=== PATIENT | female | born 1975 | race African-American/Black ===

== ENCOUNTER 2018-01-25 13:47 | Inpatient (IN) | payer MEDICARE, MEDICAID ==
[~2018-01-25] VITALS: Ht 175.3 cm; Wt 105.7 kg
[2018-01-25] MEDS ORDERED: ONDANSETRON HCL 4MG/2ML VIAL IV STA (13:55)
[2018-01-25] MEDS ORDERED: SODIUM CHLORIDE 0.9% 1,000 ML IV ONE ×2 (13:55→15:38)
[2018-01-25] MEDS ORDERED: KETOROLAC 30MG/ML VIAL IV STA (13:55)
[2018-01-25] MEDS ORDERED: MORPHINE SULFATE 4 MG/ML CPJ (NOT FOR IM USE) IV STA (13:55)
[2018-01-25 14:34] LABS: CHLORIDE 106 mEq/L (98-107)
[2018-01-25 14:35] LABS: HEMATOCRIT. 38.7 % (36.0-48.0); HEMOGLOBIN. 12.9 g/dL (12.0-16.0); MEAN CORPUSCULAR HEMOGLOBIN 30.8 pg (28.0-32.0); MEAN CORPUSCULAR VOLUME 92.3 fL (81.0-99.0); MEAN PLATELET VOLUME 7.8 fl (7.4-10.4); PLATELET 375 x1000/uL (130-400); RED BLOOD CELL COUNT 4.19 mill/uL (4.2-5.4); RED CELL DISTRIBUTION WIDTH 13.7 % (11.6-14.6)
[2018-01-25 14:55] LABS: HCG SCREEN NEGATIVE
[2018-01-25 15:04] LABS: PLATELET ESTIMATE NORMAL
[2018-01-25 15:28] LABS: CREATINE KINASE 204 IU/L (26-192)
[2018-01-25 15:29] LABS: CREATINE KINASE MB FRACTION 1.3 ng/mL (0.5-3.6)
[2018-01-25] MEDS ORDERED: CEFTRIAXONE 1 G PREMIX 50 ML IV ONE (16:30)
[2018-01-25] MEDS ORDERED: CLONIDINE 0.1MG TABLET PO PRN (17:15)
[2018-01-25] MEDS ORDERED: HYDROCODONE/ACETAMINOPHEN 5/325MG TABLET PO PRN (17:15)
[2018-01-25] MEDS ORDERED: DOCUSATE SODIUM 100MG CAPSULE PO PRN (17:15)
[2018-01-25] MEDS ORDERED: MAGNESIUM/ALUMINUM HYDROXIDE/SIMETHICONE 30ML UDC PO PRN (17:15)
[2018-01-25] MEDS ORDERED: ACETAMINOPHEN 325MG TABLET PO PRN (17:15)
[2018-01-25] MEDS ORDERED: ONDANSETRON HCL 4MG/2ML VIAL IV PRN (17:15)
[2018-01-25] MEDS ORDERED: ENOXAPARIN 40MG/0.4ML SYR SUBCUT SCH (17:15)
[2018-01-25] MEDS ORDERED: KETOROLAC 30MG/ML VIAL IV PRN (17:15)
[2018-01-25] MEDS ORDERED: IPRATROPIUM/ALBUTEROL 0.5-3(2.5)MG/3ML NEB INH PRN (17:15)
[2018-01-25 20:30] VITALS: BP 118/67
[2018-01-25] MEDS ORDERED: METH2.5T PO (20:43)
[2018-01-25] MEDS ORDERED: SERT50TA12 PO (20:43)
[2018-01-25] MEDS ORDERED: TRAZ-129 PO (20:43)
[2018-01-25] MEDS ORDERED: ASPI-1159 MT (20:43)
[2018-01-25] MEDS ORDERED: FOLI-43 PO (20:43)
[2018-01-25] MEDS ORDERED: DIPH25CA83 PO (20:43)
[2018-01-25] MEDS ORDERED: HYDR-2412 PO (20:43)
[2018-01-25 20:45] LABS: CHLORIDE 110 mEq/L (98-107)
[2018-01-25 21:00] VITALS: BP 118/67
[2018-01-25] MEDS ORDERED: CEFTRIAXONE 1 G PREMIX 50 ML IV SCH (21:00)
[2018-01-25] MEDS: ENOXAPARIN 30MG/0.3ML SYR SUBCUT SCH (21:00)
[2018-01-25] MEDS: SODIUM CHLORIDE 0.9% 1,000 ML IV SCH (22:53)
[2018-01-25] MEDS ORDERED: POTASSIUM CHLORIDE 20MEQ TABLET SR PO SCH (23:45)
[2018-01-26] VITALS: BP 126/69
[2018-01-26 04:00] VITALS: BP 106/66
[2018-01-26 08:00] VITALS: BP 122/85
[2018-01-26 09:00] LABS: BASOPHILS % 0.5 % (0.0-2.0); EOSINOPHILS % 1.5 % (0.0-5.0); HEMATOCRIT. 36.6 % (36.0-48.0); HEMOGLOBIN. 12.1 g/dL (12.0-16.0); LYMPHOCYTES % 21.1 % (20.0-50.0); MEAN CORPUSCULAR HEMOGLOBIN 30.7 pg (28.0-32.0); MEAN CORPUSCULAR VOLUME 92.9 fL (81.0-99.0); MEAN PLATELET VOLUME 7.8 fl (7.4-10.4); MONOCYTES % 7.3 % (2.0-8.0); NEUTROPHILS % 69.6 % (40.0-76.0); PLATELET 337 x1000/uL (130-400); RED BLOOD CELL COUNT 3.94 mill/uL (4.2-5.4); RED CELL DISTRIBUTION WIDTH 13.5 % (11.6-14.6)
[2018-01-26] MEDS: SERTRALINE HCL 50MG TABLET PO SCH (10:16)
[2018-01-26] MEDS: ENOXAPARIN 30MG/0.3ML SYR SUBCUT SCH ×2 (10:21→21:39)
[2018-01-26 12:00] VITALS: BP 117/80
[2018-01-26] MEDS: HYDROXYZINE 25MG TABLET PO SCH (12:57)
[2018-01-26] MEDS ORDERED: DIPHENHYDRAMINE 25MG CAPSULE PO PRN (13:30)
[2018-01-26] MEDS: ASPIRIN 81MG TABLET PO SCH (13:30)
[2018-01-26] MEDS: FOLIC ACID 0.4MG TABLET PO SCH (14:14)
[2018-01-26 16:00] VITALS: BP 125/76
[2018-01-26] MEDS: CETIRIZINE 10MG TABLET PO SCH (17:06)
[2018-01-26] MEDS: SODIUM CHLORIDE 0.9% 1,000 ML IV SCH ×2 (17:08→21:42)
[2018-01-26] MEDS ORDERED: DIPHENHYDRAMINE 50MG/ML VIAL IM PRN (19:30)
[2018-01-26] MEDS ORDERED: DIPHENHYDRAMINE 50MG/ML VIAL IV NR (19:30)
[2018-01-26 20:00] VITALS: BP 104/66
[2018-01-26] MEDS ORDERED: CEFTRIAXONE 1 G PREMIX 50 ML IV SCH (21:00)
[2018-01-26] MEDS ORDERED: TRAZODONE HCL 50MG TABLET PO PRN (21:00)
[2018-01-27] VITALS: BP 104/71
[2018-01-27 04:00] VITALS: BP 116/86
[2018-01-27 05:46] LABS: BASOPHILS % 0.6 % (0.0-2.0); EOSINOPHILS % 2.3 % (0.0-5.0); HEMATOCRIT. 34.2 % (36.0-48.0); HEMOGLOBIN. 11.4 g/dL (12.0-16.0); LYMPHOCYTES % 29.2 % (20.0-50.0); MEAN CORPUSCULAR HEMOGLOBIN 30.8 pg (28.0-32.0); MEAN CORPUSCULAR VOLUME 92.4 fL (81.0-99.0); MEAN PLATELET VOLUME 7.6 fl (7.4-10.4); MONOCYTES % 6.6 % (2.0-8.0); NEUTROPHILS % 61.3 % (40.0-76.0); PLATELET 319 x1000/uL (130-400); RED CELL DISTRIBUTION WIDTH 13.2 % (11.6-14.6)
[2018-01-27 06:20] LABS: CHLORIDE 111 mEq/L (98-107)
[2018-01-27 06:37] LABS: PHOSPHORUS 2.8 mg/dL (2.5-4.9)
[2018-01-27 08:00] VITALS: BP 118/91
[2018-01-27] MEDS: CETIRIZINE 10MG TABLET PO SCH (10:05)
[2018-01-27] MEDS: SERTRALINE HCL 50MG TABLET PO SCH (10:05)
[2018-01-27] MEDS: ASPIRIN 81MG TABLET PO SCH (10:05)
[2018-01-27] MEDS: FOLIC ACID 0.4MG TABLET PO SCH (10:05)
[2018-01-27] MEDS: ENOXAPARIN 30MG/0.3ML SYR SUBCUT SCH (10:06)
[2018-01-27] MEDS: HYDROXYZINE 25MG TABLET PO SCH (10:08)
[2018-01-27 12:00] VITALS: BP 122/79
[2018-01-27] MEDS ORDERED: POTASSIUM CHLORIDE 20MEQ TABLET SR PO NR (13:45)
[2018-01-27 16:00] VITALS: BP 117/82
[2018-01-27 18:21] VITALS: BP 132/78
[2018-02-01] MEDS ORDERED: METHOTREXATE SODIUM 2 . 5MG TABLET PO SCH (09:00)
== END 2018-01-27 19:25 | disposition home or self-care (01) | DRG 392 ==
LOC: ER 13:47 → 6EST 16:09 → EDBEDREQTM 16:14 → EDBEDREQ 16:14 → ENRESERV 18:16 → 6EST 01-26 04:39
PROVIDERS: ADMIT Internal Medicine; ATTEND Internal Medicine
DX: K58.9 Irritable bowel syndrome, unspecified (principal); F41.9 Anxiety disorder, unspecified; D64.9 Anemia, unspecified; D72.829 Elevated white blood cell count, unspecified; E66.01 Morbid (severe) obesity due to excess calories; E87.6 Hypokalemia; F31.9 Bipolar disorder, unspecified; N28.1 Cyst of kidney, acquired; M79.672 Pain in left foot; M79.671 Pain in right foot; M06.9 Rheumatoid arthritis, unspecified; Z68.34 Body mass index [BMI] 34.0-34.9, adult; Z79.899 Other long term (current) drug therapy; Z91.012 Allergy to eggs; Z91.011 Allergy to milk products; Z91.018 Allergy to other foods; Z91.013 Allergy to seafood
CPT/HCPCS: 36415; 71045; 74176; 76830; 76856; 80048; 80053; 80061; 82550; 82553; 83036; 83690; 83735; 84100; 84145; 84443; 84484; 84703; 85025; 85610; 85730; 86256; 87040; 93005; 93970; 96374; 96375; 99285; J0696; J1200; J1650; J1885; J2270; J2405; J7030; J7040; Q0163

== ENCOUNTER 2020-10-05 07:35 | Emergency (ER) | payer MEDICARE, MEDICAID ==
[~2020-10-05] VITALS: Ht 172.7 cm; Wt 82.0 kg
[~2020-10-05 07:35] MED LIST: ASPI-1497 MT; DIPH25CA83 PO; FOLI-43 PO; HYDR-459 PO; METH2.5T PO; SERT-422 PO; TRAZ-251 PO
[2020-10-05] MEDS ORDERED: ONDANSETRON HCL 4MG/2ML INJ IV STA (07:46)
[2020-10-05] MEDS ORDERED: MORPHINE SULFATE 4 MG/ML CPJ (NOT FOR IM USE) IV STA (07:46)
[2020-10-05 08:26] LABS: BASOPHILS % 0.7 % (0.0-2.0); CHLORIDE 106 mEq/L (98-107); EOSINOPHILS % 2.4 % (0.0-5.0); HEMATOCRIT. 39.1 % (36.0-48.0); HEMOGLOBIN. 13.1 g/dL (12.0-16.0); LYMPHOCYTES % 14.1 % (20.0-50.0); MEAN CORPUSCULAR VOLUME 92.5 fL (81.0-99.0); MEAN PLATELET VOLUME 7.5 fl (7.4-10.4); MONOCYTES % 7.5 % (2.0-8.0); NEUTROPHILS % 75.3 % (40.0-76.0); PLATELET 419 x1000/uL (130-400); RED BLOOD CELL COUNT 4.23 mill/uL (4.2-5.4); RED CELL DISTRIBUTION WIDTH 12.8 % (11.6-14.6)
[2020-10-05 08:30] LABS: INR 0.9; PROTHROMBIN TIME 10.2 sec (9.6-11.0)
[2020-10-05 08:43] LABS: HCG SCREEN NEGATIVE
[2020-10-05 08:54] LABS: CLARITY URINE CLOUDY (CLEAR); COLOR URINE YELLOW (YELLOW); KETONES URINE NEGATIVE (NEGATIVE); LEUKOCYTE ESTERASE URINE NEGATIVE (NEGATIVE); NITRITE URINE NEGATIVE (NEGATIVE); OCCULT BLOOD URINE 3+ (NEGATIVE); PROTEIN URINE NEGATIVE (NEGATIVE); UROBILINOGEN URINE 0.2 E.U./dL (0.2-1.0)
[2020-10-05] MEDS ORDERED: IBUP-2028 PO (09:44)
[2020-10-05] MEDS ORDERED: T3 PO (09:44)
[2020-10-05 09:49] VITALS: BP 115/78
== END 2020-10-05 10:31 | disposition home or self-care (01) ==
LOC: ER 07:35
DX: N20.0 Calculus of kidney (principal); F41.9 Anxiety disorder, unspecified; Z91.02 Food additives allergy status; Z91.011 Allergy to milk products; Z91.012 Allergy to eggs; Z91.018 Allergy to other foods
CPT/HCPCS: 36415; 74176; 80053; 81003; 83690; 84703; 85025; 85610; 96374; 96375; 99284; J2270; J2405